=== PATIENT | female | born 1955 | race Caucasian/White ===

== ENCOUNTER → 2020-02-11 | Outpatient (CLI) | payer OTHER, MEDICARE ==
[~2020-02-11] MED LIST: ADULT LOW DOSE81 MG PO; ALLEGRA60 MG PO; ALLERCLEAR10 MG PO; FISHOIL; HYDROCHLOROTHIA25 M1 PO; LEVOTHROID88 MCG PO; PRILOSEC 20 MG20 MG PO; VALACYCLOVIR1000 MG PO; ZESTRIL10 MG PO
== END ==
LOC: BC 08:33
PROVIDERS: ATTEND Family Medicine
DX: Z12.31 Encounter for screening mammogram for malignant neoplasm of breast (principal)